=== PATIENT | male | born 1995 | race Caucasian/White ===

== ENCOUNTER 2017-01-18 18:06 | Emergency (ER) | payer BC ==
[~2017-01-18] VITALS: Ht 177.8 cm; Wt 79.5 kg
[2017-01-18 18:17] VITALS: TEMP 100
[2017-01-18 19:03] LABS: BASO # 0.1 (0.0-0.2); BASO % 0.4 % (0.0-2.0); EOS % 0.2 % (0-4.0); GRAN # 11.6 (1.4-6.5); GRAN % 87.3 % (42.2-75.2); HEMATOCRIT 45.9 % (42.0-52.0); HEMOGLOBIN 16.2 g/dl (13.5-18.0); LYMPH # 0.7 (1.2-3.4); LYMPH % 5.1 % (20.0-51.0); MEAN CELL VOLUME 83 fl (80.0-100.0); MEAN CORPUSCULAR HEMOGLOBIN 29 pg (27.0-31.0); MEAN CORPUSCULAR HGB CONC 35 g/dl (33.0-37.0); MEAN PLATELET VOLUME 10.1 fl (7.4-10.4); MONO # 0.9 (0.1-0.6); MONO % 6.6 % (1.7-9.3); PLATELET COUNT 247 K/mm3 (130-400); RED BLOOD COUNT 5.52 M/mm3 (4.20-5.60); REDCELL DISTRIBUTION WIDTH-CV 11.4 % (11.5-14.5); WHITE BLOOD COUNT 13.3 K/mm3 (4.8-10.8)
[2017-01-18 19:15] LABS: ADJUSTED CALCIUM 8.6 mg/dL (8.4-10.2); BILIRUBIN,TOTAL 1.2 mg/dL (0.0-1.0); C-REACTIVE PROTEIN 0.7 mg/dL (0.0-0.9); CALCIUM 9.4 mg/dL (8.4-10.2); CREATININE, serum 1.03 mg/dL (0.66-1.25); POTASSIUM 3.5 mmol/L (3.4-5.0)
[2017-01-18 19:26] LABS: INFLUENZA B NEGATIVE
[2017-01-18 20:26] VITALS: BP 130/80; PULSE 90
== END 2017-01-18 20:27 | disposition home or self-care (01) ==
LOC: COL.ER 18:06
PROVIDERS: Family Medicine
DX: R51 Headache (principal); R50.9 Fever, unspecified; H81.21 Vestibular neuronitis, right ear
CPT/HCPCS: J7030

== ENCOUNTER 2017-08-04 11:56 | Emergency (ER) | payer BC ==
[~2017-08-04] VITALS: Ht 177.8 cm; Wt 81.8 kg
[2017-08-04 12:05] VITALS: BP 136/89; PULSE 67; TEMP 99
== END 2017-08-04 12:57 | disposition home or self-care (01) ==
LOC: COL.ER 11:56
DX: F32.9 Major depressive disorder, single episode, unspecified (principal)